=== PATIENT | male | born 1960 | race Caucasian/White ===

== ENCOUNTER 2016-07-04 12:54 | Observation (INO) | payer SELFPAY ==
[2016-07-04] MEDS: NITROGLYCERIN 0.4 MG SL TAB (BOTTLE OF 3) SL ONE ×2 (13:00→13:05)
[2016-07-04] MEDS ORDERED: NITROGLYCERIN 0.4 MG SL TAB (BOTTLE OF 3) SL ONE ×2 (13:01→14:41)
[2016-07-04] MEDS ORDERED: Sodium Chloride 0.9% 1,000 ML PRIMARY IV ONE (13:05)
[2016-07-04] MEDS ORDERED: ONDANSETRON 4 MG/2 ML VIAL IVP ONE (13:05)
[2016-07-04] MEDS ORDERED: MORPHINE SULFATE 4 MG/1 ML IVP ONE (13:05)
[2016-07-04] MEDS ORDERED: ACETAMINOPHEN 500 MG TABLET PO ONE (13:12)
--- NOTE | 2016-07-04 13:12 | PDOC ---
Chest Pain HPI - General Chief Complaint: Chest Pain Stated Complaint: CHEST PAIN, LEFT ARM PAIN Date Seen by Provider: 07/04/16 Time Seen by Provider: 13:07 Source: Patient Exam Limitations: POSITIVE: No limitations Treatment Prior to Arrival: REPORTS: Aspirin Nurse's Notes Reviewed & Considered: Yes EMS Report Reviewed & Considered: Verbal - History of Present Illness Initial Comments: This pleasant 55-year-old male comes in today via ambulance for chest pain. 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 He had associated nausea , sweating, and radiation to his back. He states when he got up this morning he didn't feel quite right but is unable to quantify exactly what was wrong. He states he was in his normal health last night when he went to bed. By the time the slip cover estimator's deputy had managed to get this patient from the drill site out to the ambulance his chest pain had significantly improved. He will the emergency department his pain rapidly abated with 2 sublingual nitroglycerin. The first dropped his pain from a 5/10 to a 1/10. The second nitroglycerin dropped his pain to 0. Patient denies any past history of cardiac issues. He denies any family history of heart attacks in his mother, father, brother, or sister. He does smoke a pack of cigarettes a day. Body Location Affected: REPORTS: Chest Timing: REPORTS: Abrupt Duration: 1-3 hours Severity: Severe Context: REPORTS: Activity Quality: REPORTS: Pressure Radiation: REPORTS: Back Associated Symptoms: REPORTS: Nausea, Shortness of Breath Modifying Factors: improves with: None Reported Similar Symptoms Previously: No Recently seen/treated/hospitalized: No Any Prior Injuries Related to Current Complaint?: No - Patient Home Medications Home Medications: Home Medications Naproxen Sodium [Aleve] 2 tab PO DAILY PRN 07/04/16 - Patient Allergies Allergies/Adverse Reactions: Allergies Allergy/AdvReac Type Severity Reaction Status Date / Time No Known Allergies Allergy Verified 07/04/16 13:17 Past Medical History - heen HEENT History: Denies History Cardiovascular History: Hypertension Respiratory History: Asthma, Other (please comment) Additional Respiratory History: smoker Gastrointestinal History: Denies History Genitourinary History: Denies History Endocrine History: Denies History Musculoskeletal History: Other (please comment) Additional Musculoskeletal History: Lt total knee. Rt shoulder pinning. Rt hand x 3 Neurological History: Denies History Blood Disorders: Denies History Psychiatric History: Denies History Cancer History: Denies History History of MDRO: Unknown Alcohol Use: None Substance Use Type: Marijuana Previous Surgical History: Yes Type / Date of Surgery: Lt knee replacement. Rt shoulder pinning. Rt hand x 3. Testicle removed Significant Family History: No pertinent family hx ROS - Limitations ROS Limitations: No Limitations Constitution: REPORTS: Diaphoresis Cardiovascular: REPORTS: Chest Pain Respiratory: REPORTS: Shortness Of Breath Neurological: REPORTS: Denies Neuro Symptoms Gastrointestinal: REPORTS: Nausea Endocrine: REPORTS: Denies Symptoms Musculoskeletal: REPORTS: Back Pain Genitourinary: REPORTS: Denies Symptoms Eyes: REPORTS: Denies Symptoms ENT: REPORTS: Denies Symptoms Skin: REPORTS: Denies Skin Symptoms Lympathic: REPORTS: Denies Lympathic Symptoms Immunologic: POSITIVE: Denies Symptoms Psychiatric: POSITIVE: Denies Psych Symptoms Chest Pain PE - General Appearance General Appearance: REPORTS: Alert, Cooperative, No Evidence of Trauma, Mild Distress - HEENT HEENT: POSITIVE: Head Inspection Nml, Eyes Inspection Nml, Ears Inspection Nml, Nose Inspection Nml, Oral/Dental Inspect. Nml, Pharynx Inspect. Nml, PERRL, EOMI - Neck Neck: REPORTS: Normal Inspection - Respiratory Respiratory: REPORTS: No Respiratory Distress, Breath Sounds Normal, Chest Non- Tender - Cardiovascular Cardiovascular: REPORTS: Regular Rate and Rhythm, Heart Sounds Normal - Abdomen Abdomen: Soft: (All Quadrants), Normal Bowel Sounds: (All Quadrants), Denies Tenderness: (All Quadrants) - Skin Skin: REPORTS: Intact, Normal For Race, Warm, Dry, No Rash - Extremities Extremity: Non-Tender: (All Extremities), Normal ROM: (All Extremities), Normal Inspection: (All Extremities), Pelvis Stable: (All Extremities) - Neurological / Psychological Neurological: POSITIVE: Affect Apporpriate, Oriented X3, Motor Normal, Sensation Normal Chest Pain Progress - Results Reviewed by me Xrays/CTs/US Reviewed by me: Yes Discussed with Radiologist: Yes Lab Results Reviewed: Yes Lab Results:: Laboratory Results 07/04/16 Range/Units 12:30 WBC 7.89 (4.8-10.8) 10^3/uL RBC 5.49 (4.70-6.10) 10^6/uL Hgb 16.7 (14.0-18.0) g/dL Hct 47.7 (42.0-52.0) % MCV 86.9 (80-90) FL MCH 30.4 (27-31) PG MCHC 35.0 (33-37) g/dL RDW Std Deviation 41.1 (39-50) fL RDW Coeff of Umair 13.0 (11.5-14.5) % Plt Count 265 (140-350) 10*3/uL MPV 11.5 (7.4-12.2) FL Immature Gran % (Auto) 0.1 (0-5) % Neut % (Auto) 52.2 (50-80) % Lymph % (Auto) 34.0 (10-50) % [place] % (Auto) 10.0 (5-15) % Eos % (Auto) 3.2 (0-8) % Baso % (Auto) 0.5 (0-1) % Immature Gran # (Auto) 0.01 10*3/UL Neut # (Auto) 4.12 10*3/UL Lymph # (Auto) 2.68 10*3/uL [place] # (Auto) 0.79 (0.3-0.8) 10*3/UL Eos # (Auto) 0.25 10*3/UL Baso # (Auto) 0.04 10*3/UL WBC Morphology Comment Normal morphology (NORM) Plt Morphology Comment Normal morphology (NORM) RBC Morph Comment Normal morphology (NORM) PT 10.2 (9.7-11.4) secs INR 0.99 (0.00-5.90) N/A D-Dimer 0.19 (0.00-0.59) mg/L Sodium 140 (135-145) meq/L Potassium 3.8 (3.8-5.2) meq/L Chloride 105 (98-112) meq/L Carbon Dioxide 23 (23-33) meq/L Anion Gap 12 (5-20) BUN 16 (7-22) mg/dL Creatinine 0.8 (0.70-1.50) mg/dL Estimated GFR > 60 (>60 ml/min/1.73m(2)) BUN/Creatinine Ratio 20.00 (6-20) Glucose 87 (78-110) mg/dL Calculated Osmolality 289.0 (267-292) mOsm/kg Calcium 9.4 (8.7-10.7) mg/dL Magnesium 1.9 (1.6-2.4) mg/dL Total Bilirubin 0.5 (0.3-1.2) mg/dL AST 35 (21-57) IU/L ALT 71 (21-72) IU/L Alkaline Phosphatase 56 (38-126) IU/L Lactate Dehydrogenase 405 (313-618) IU/L Total Creatine Kinase 129 (55-170) IU/L Troponin I < 0.012 (< 0.040) ng/mL C-Reactive Protein < 0.5 (0.0-0.9) mg/dL NT-Pro-B Natriuret Pep 22.1 (0-125) PG/ML Total Protein 7.6 (6.1-8.0) g/dL Albumin 4.3 (3.5-4.8) g/dL Globulin 3.3 (2.50-4.10) g/dL Albumin/Globulin Ratio 1.30 (1.3-2.0) mg/g TSH 1.51 (0.2700-4.2000) uIU/mL EKG Interpretation:: POSITIVE: Normal Sinus Rhythm, Normal Rate, Normal QRS, Normal ST/T - Patient's Progress Pain Medication Addressed: POSITIVE: Yes Re-Examine Time: 14:50 Status: POSITIVE: Improved MDM / ED Course: Patient was evaluated, an IV started, blood drawn and sent to the lab for studies, EKG and chest x-rays were obtained. Prior to arrival patient received 4 baby aspirin. Emergency department patient received a liter of normal saline, sublingual nitroglycerin, Zofran, and morphine. The first sublingual nitroglycerin resulted in improvement of his chest pain, the second sublingual nitroglycerin resulted in resolution of his chest pain. Approximately an hour and half later patient's chest pain began to return and a third sublingual nitroglycerin were provided. Next Findings: CBC is within normal limits, comprehensive metabolic panel is within normal limits, d-dimer is normal, troponin is normal, PT and INR normal, EKG is interpreted by me shows a normal sinus rhythm with rate of 76 beats a minute, chest x-ray shows no acute cardiopulmonary decompensation. Assessment: Chest pain with normal EKG and troponin. His chest pain was relieved with sublingual nitroglycerin. Plan: Admission for rule out myocardial infarction with serial enzymes. Quality Measure Initiative: CP/AMI: POSITIVE: EKG, ASA Quality Measure Initiative: CAP: POSITIVE: CXR or CT - Consult Consult (If Yes, Name of Consulting MD & Time Called): Yes (Dr. Juarez [id number]) Consulting MD will see pt:: POSITIVE: [facility] Admit Counseled: POSITIVE: Patient, Family, RE: Lab Results, RE: Radiology Results, RE : DX Patient Care Time - Estimated PCT Patient Care Time (In Minutes): 45 Vital Signs - Recent Vital Signs Vital Signs: Vital Signs (Last 8 hours) Temp Pulse Pulse Resp BP Pulse Ox 07/04/16 13:14 82 18 149/88 93 07/04/16 13:12 97.8 F 07/04/16 13:04 75 07/04/16 12:54 97.8 F 83 17 156/101 92 - VS Reviewed Vital Signs Reviewed: Yes Discharge Clinical Impression: Chest pain Discharge Disposition: Admit to Inpatient Condition: Fair Patient Instructions Given at Discharge: Chest Pain (ED) Date Decision to Admit to Inpatient: 07/04/16 Time Decision to Admit to Inpatient: 14:51
[2016-07-04] MEDS ORDERED: ACETAMINOPHEN 325 MG TABLET PO ONE (13:15)
[2016-07-04 13:21] LABS: BASOPHILS # (AUTO) 0.04 10*3/UL; BASOPHILS % (AUTO) 0.5 % (0-1); EOSINOPHILS # (AUTO) 0.25 10*3/UL; EOSINOPHILS % (AUTO) 3.2 % (0-8); HEMATOCRIT 47.7 % (42.0-52.0); HEMOGLOBIN 16.7 g/dL (14.0-18.0); LYMPHOCYTES # (AUTO) 2.68 10*3/uL; MEAN CORPUSCULAR HEMOGLOBIN 30.4 PG (27-31); MEAN CORPUSCULAR VOLUME 86.9 FL (80-90); MEAN PLATELET VOLUME 11.5 FL (7.4-12.2); MONOCYTES # (AUTO) 0.79 10*3/UL (0.3-0.8); NEUTROPHILS # (AUTO) 4.12 10*3/UL; NEUTROPHILS % (AUTO) 52.2 % (50-80); RED BLOOD COUNT 5.49 10^6/uL (4.70-6.10)
[2016-07-04 13:28] LABS: BLOOD UREA NITROGEN 16 mg/dL (7-22); CALCIUM 9.4 mg/dL (8.7-10.7); EST GLOMERULAR FILTRATION > 60 (>60 ml/min/1.73m(2)); MAGNESIUM 1.9 mg/dL (1.6-2.4); SERUM ALBUMIN 4.3 g/dL (3.5-4.8)
[2016-07-04 13:36] LABS: C-REACTIVE PROTEIN < 0.5 mg/dL (0.0-0.9)
[2016-07-04 13:43] LABS: PLATELET MORPHOLOGY COMMENT NORMAL MORPHOLOGY (NORM); RBC MORPHOLOGY COMMENT NORMAL MORPHOLOGY (NORM); WBC MORPHOLOGY COMMENT NORMAL MORPHOLOGY (NORM)
--- NOTE | 2016-07-04 14:18 | DI ---
AP CHEST X-RAY, 07/04/2016 1:05 PM : Clinical History: Chest pain Previous Exam: None at this facility. There is no acute soft tissue or bony abnormality. Heart size is normal. Lungs are clear. Mediastinal structures are normal. There are no pulmonary nodules. Overlying EKG leads are seen. Reading: Normal chest x-ray.
--- NOTE | 2016-07-04 14:34 | EKG ---
[address] [address] Measurements Intervals [place] Rate: 75 P: 53 AK: 173 QRS: 66 QRSD: 92 T: 36 QT: 379 QTc: 408 Interpretive Statements SINUS RHYTHM No previous ECG available for comparison Electronically Signed On 07-05-16 10:27:38 MDT by Gideon Jose [id number]
[2016-07-04] MEDS ORDERED: LIDOCAINE W/ SODIUM BICARB 0.5 ML SYR SUBD PRN (15:29)
[2016-07-04] MEDS ORDERED: NORMAL SALINE 10 ML SYRINGE FLUSH IVP PRN (15:29)
[2016-07-04] MEDS ORDERED: NITROGLYCERIN 0.4 MG SL TAB (BOTTLE OF 3) SL PRN (15:32)
[2016-07-04] MEDS ORDERED: ONDANSETRON 4 MG/2 ML VIAL IVP PRN (15:32)
--- NOTE | 2016-07-04 15:48 | PDOC ---
History and Physical - History of Present Illness Date and Time of Service: 07/05/2016 3:40 PM Chief Complaint: Chest pain that started today History of Present Illness: This is a 55 years old male with no significant past medical history except he was told in the past that he has borderline hypertension he is on no medication though, who was brought to the hospital because of pain in the chest. 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 in the ER his pain started to come back so they gave him nitroglycerin and that helped to relieve his pain. Currently he is denying pain. Never had this pain before. He did say that he didn't feel right this morning. Past Medical History Medical History: Borderline hypertension on no medications Surgical History: 1. History of previous left knee replacement and right hand surgery and right shoulder pinning. 2. Testicular removal for benign tumor Pertinent Family History: Grandparent had heart disease Past Social History: He is a smoker, denied drugs, no alcohol. Lives in [place]. Tobacco Use: Current Every Day Smoker Substance Use Type: Marijuana Alcohol Use: None Medication / Allergies Home Medications: Home Medications Medication Instructions Recorded Confirmed Type Naproxen Sodium [Aleve] 2 tab PO DAILY PRN 07/04/16 07/04/16 History Allergies/Adverse Reactions: Allergies Allergy/AdvReac Type Severity Reaction Status Date / Time No Known Allergies Allergy Verified 07/04/16 13:17 Review of Systems - Review of Systems All Systems: Reviewed & No Additional Complaints Except as Stated Exam - Vitals Vital Signs: Vital Signs Temperature 98.1 F Temperature Source Oral Pulse Rate [Telemetry] 71 Pulse Rate 70 Respiratory Rate 16 Blood Pressure [Right Arm] 187/91 Blood Pressure 128/85 Pulse Ox 90 Oxygen Delivery Method Room Air Weight 252 lb 3.2 oz - General General Appearance: POSITIVE: No Acute Distress, Cooperative, Obese - Head Head Exam: POSITIVE: Normal Inspection, Atraumatic - Eye Eye Exam: POSITIVE: Normal Appearance - ENT ENT Exam: POSITIVE: Normal Exam - Neck Neck Exam: POSITIVE: Normal Inspection - Respiratory Respiratory Exam: POSITIVE: Clear to Auscultation - Bilaterally - Cardiovascular Cardiovascular Exam: POSITIVE: RRR - GI/Abdominal GI/Abdominal Exam: POSITIVE: Normal Bowel Sounds, Non Tender, Non Distended, Soft - Rectal Rectal Exam: POSITIVE: Deferred - External Exam: POSITIVE: Deferred - Extremities Extremities Exam: POSITIVE: Normal Inspection - Back Back Exam: POSITIVE: Normal Inspection - Neurological Neurological Exam: POSITIVE: Alert, Oriented x 3, CN II-XII Intact, Moves All Extremities Equally - Psychiatric Psychiatric Exam: POSITIVE: Normal Affect - Integumentary Integumentary Exam: POSITIVE: Normal Color Results - Labs CBC and BMP: 07/04/16 12:30 07/04/16 12:30 - EKG Data Rate: Normal EKG Shows Normal: Sinus Rhythm - EKG Data Additional EKG Details: No significant EKG changes noted - Imaging Status: Report Reviewed by Me (Chest x-ray is normal) Assessment and Plan - Patient Problems (1) Chest pain Current Visit: Yes Status: Acute Comment: We'll rule him out, will repeat his cardiac enzymes, will do a stress test in the morning. Will order Lexiscan stress as he is not sure he is be able to walk on treadmill. Will check his lipids. Will put him on aspirin. Will put him also on Protonix. Photo / Body Diagrams - Uploaded Photos Uploaded Photos:
[2016-07-04] MEDS: NICOTINE 21 MG /DAY PATCH TRANSDERM SCH (16:36)
[2016-07-04] MEDS: oxyCODONE-ACETAMINOPHEN 5-325 TAB PO PRN (20:24)
[2016-07-04] MEDS: PANTOPRAZOLE 40 MG TABLET PO SCH (20:24)
[2016-07-05 06:14] LABS: CHOL/HDL RATIO 7.14 RATIO (0-4.0)
--- NOTE | 2016-07-05 08:23 | STRESSTEST ---
[facility] Interpretive Statements Patient had Lexiscan stress test per protocol, Baseline BP was 116/70, heart rate 69, baseline EKG showed minimal ST deperssion in lead III, post infusion patient did have some shortness of breath and dizziness that resolved in the recovery phase, Maximum BP was 122/76, maximum heart rate was 98, No significant EKG changes noted from baseline., Conclusion: The EKG part of lexiscan stress test did not show signficant changes. await nuclear scan results. [email or web address]
--- NOTE | 2016-07-05 08:51 | PDOC(PROG) ---
Date and Time of Service: 07/05/2016 8:15 AM Interval History: Subjective Patient feels better, He is denying chest pain. No shortness of breath and no nausea. Objective : Data - Labs CBC and BMP: 07/04/16 12:30 07/04/16 12:30 Labs - Last 24 Hours: Laboratory Results 07/04/16 07/05/16 07/05/16 Range/Units 19:00 00:53 05:40 Total Creatine Kinase 99 99 (55-170) IU/L Troponin I < 0.012 < 0.012 (< 0.040) ng/mL Triglycerides 245 H (44-200) mg/dL Cholesterol 150 (120-200) mg/dL LDL Cholesterol, Calc 80.000 mg/dL VLDL Cholesterol 49 H (0-40) mg/dL HDL Cholesterol 21 L (40-150) mg/dL Cholesterol/HDL Ratio 7.14 H (0-4.0) RATIO Objective : Exam - General General Appearance: No Acute Distress, Cooperative, Obese - Head Head Exam: Normal Inspection - Eye Eye Exam: Normal Appearance - ENT ENT Exam: Normal Exam - Neck Neck Exam: Normal Inspection - Respiratory Respiratory Exam: Clear to Auscultation - Bilaterally - Cardiovascular Cardiovascular Exam: RRR - GI/Abdominal GI/Abdominal Exam: Normal Bowel Sounds, Non Tender, Non Distended, Soft - Rectal Rectal Exam: Deferred - External Exam: Deferred - Extremities Extremities Exam: Normal Inspection - Back Back Exam: Normal Inspection - Neurological Neurological Exam: Alert, Oriented x 3, CN II-XII Intact, Speech Intact / Clear - Psychiatric Psychiatric Exam: Normal Affect Assessment and Plan - Patient Problems (1) Chest pain Current Visit: Yes Status: Acute Comment: Patient pain resolved, enzymes remained negative. We did the first part of the stress test today did not have signifcant EKG changes, he'll have the resting image tomorrow. Will Keep him overnight until we get the stress test result as he live in [place] Photo / Body Diagrams - Uploaded Photos Uploaded Photos:
[2016-07-05] MEDS: PANTOPRAZOLE 40 MG TABLET PO SCH ×2 (09:11→20:52)
[2016-07-05] MEDS: ASPIRIN 325 MG EC TABLET PO SCH (09:12)
[2016-07-05] MEDS: NICOTINE 21 MG /DAY PATCH TRANSDERM SCH ×2 (14:41→16:55)
[2016-07-05] MEDS ORDERED: Patch Removal PATCH TRANSDERM SCH (16:30)
[2016-07-05] MEDS: oxyCODONE-ACETAMINOPHEN 5-325 TAB PO PRN (19:21)
[2016-07-06] MEDS: PANTOPRAZOLE 40 MG TABLET PO SCH (08:58)
[2016-07-06] MEDS: ASPIRIN 325 MG EC TABLET PO SCH (08:59)
[2016-07-06 09:01] VITALS: RESP 16
[2016-07-06 12:33] VITALS: TEMP 97.8
--- NOTE | 2016-07-06 13:30 | DCSUMMARY ---
Hospitalization Summary Hospital Course: Final Discharge Diagnosis: Current Visit Problems Problem Status Priority Diagnosed Code Chest pain Acute R07.9 Diagnostic Data, Laboratory Data, and Procedures of Signifigance: Laboratory Results 07/04/16 07/04/16 07/05/16 Range/Units 12:30 19:00 00:53 WBC 7.89 (4.8-10.8) 10^3/uL RBC 5.49 (4.70-6.10) 10^6/uL Hgb 16.7 (14.0-18.0) g/dL Hct 47.7 (42.0-52.0) % MCV 86.9 (80-90) FL MCH 30.4 (27-31) PG MCHC 35.0 (33-37) g/dL RDW Std Deviation 41.1 (39-50) fL RDW Coeff of Umair 13.0 (11.5-14.5) % Plt Count 265 (140-350) 10*3/uL MPV 11.5 (7.4-12.2) FL Immature Gran % (Auto) 0.1 (0-5) % Neut % (Auto) 52.2 (50-80) % Lymph % (Auto) 34.0 (10-50) % Winn % (Auto) 10.0 (5-15) % Eos % (Auto) 3.2 (0-8) % Baso % (Auto) 0.5 (0-1) % Immature Gran # (Auto) 0.01 10*3/UL Neut # (Auto) 4.12 10*3/UL Lymph # (Auto) 2.68 10*3/uL Winn # (Auto) 0.79 (0.3-0.8) 10*3/UL Eos # (Auto) 0.25 10*3/UL Baso # (Auto) 0.04 10*3/UL WBC Morphology Comment Normal morphology (NORM) Plt Morphology Comment Normal morphology (NORM) RBC Morph Comment Normal morphology (NORM) PT 10.2 (9.7-11.4) secs INR 0.99 (0.00-5.90) N/A D-Dimer 0.19 (0.00-0.59) mg/L Sodium 140 (135-145) meq/L Potassium 3.8 (3.8-5.2) meq/L Chloride 105 (98-112) meq/L Carbon Dioxide 23 (23-33) meq/L Anion Gap 12 (5-20) BUN 16 (7-22) mg/dL Creatinine 0.8 (0.70-1.50) mg/dL Estimated GFR > 60 (>60 ml/min/1.73m(2)) BUN/Creatinine Ratio 20.00 (6-20) Glucose 87 (78-110) mg/dL Calculated Osmolality 289.0 (267-292) mOsm/kg Calcium 9.4 (8.7-10.7) mg/dL Magnesium 1.9 (1.6-2.4) mg/dL Total Bilirubin 0.5 (0.3-1.2) mg/dL AST 35 (21-57) IU/L ALT 71 (21-72) IU/L Alkaline Phosphatase 56 (38-126) IU/L Lactate Dehydrogenase 405 (313-618) IU/L Total Creatine Kinase 129 99 99 (55-170) IU/L Troponin I < 0.012 < 0.012 < 0.012 (< 0.040) ng/mL C-Reactive Protein < 0.5 (0.0-0.9) mg/dL NT-Pro-B Natriuret Pep 22.1 (0-125) PG/ML Total Protein 7.6 (6.1-8.0) g/dL Albumin 4.3 (3.5-4.8) g/dL Globulin 3.3 (2.50-4.10) g/dL Albumin/Globulin Ratio 1.30 (1.3-2.0) mg/g Triglycerides (44-200) mg/dL Cholesterol (120-200) mg/dL LDL Cholesterol, Calc mg/dL VLDL Cholesterol (0-40) mg/dL HDL Cholesterol (40-150) mg/dL Cholesterol/HDL Ratio (0-4.0) RATIO TSH 1.51 (0.2700-4.2000) uIU/mL 07/05/16 Range/Units 05:40 WBC (4.8-10.8) 10^3/uL RBC (4.70-6.10) 10^6/uL Hgb (14.0-18.0) g/dL Hct (42.0-52.0) % MCV (80-90) FL MCH (27-31) PG MCHC (33-37) g/dL RDW Std Deviation (39-50) fL RDW Coeff of Umair (11.5-14.5) % Plt Count (140-350) 10*3/uL MPV (7.4-12.2) FL Immature Gran % (Auto) (0-5) % Neut % (Auto) (50-80) % Lymph % (Auto) (10-50) % Winn % (Auto) (5-15) % Eos % (Auto) (0-8) % Baso % (Auto) (0-1) % Immature Gran # (Auto) 10*3/UL Neut # (Auto) 10*3/UL Lymph # (Auto) 10*3/uL Winn # (Auto) (0.3-0.8) 10*3/UL Eos # (Auto) 10*3/UL Baso # (Auto) 10*3/UL WBC Morphology Comment (NORM) Plt Morphology Comment (NORM) RBC Morph Comment (NORM) PT (9.7-11.4) secs INR (0.00-5.90) N/A D-Dimer (0.00-0.59) mg/L Sodium (135-145) meq/L Potassium (3.8-5.2) meq/L Chloride (98-112) meq/L Carbon Dioxide (23-33) meq/L Anion Gap (5-20) BUN (7-22) mg/dL Creatinine (0.70-1.50) mg/dL Estimated GFR (>60 ml/min/1.73m(2)) BUN/Creatinine Ratio (6-20) Glucose (78-110) mg/dL Calculated Osmolality (267-292) mOsm/kg Calcium (8.7-10.7) mg/dL Magnesium (1.6-2.4) mg/dL Total Bilirubin (0.3-1.2) mg/dL AST (21-57) IU/L ALT (21-72) IU/L Alkaline Phosphatase (38-126) IU/L Lactate Dehydrogenase (313-618) IU/L Total Creatine Kinase (55-170) IU/L Troponin I (< 0.040) ng/mL C-Reactive Protein (0.0-0.9) mg/dL NT-Pro-B Natriuret Pep (0-125) PG/ML Total Protein (6.1-8.0) g/dL Albumin (3.5-4.8) g/dL Globulin (2.50-4.10) g/dL Albumin/Globulin Ratio (1.3-2.0) mg/g Triglycerides 245 H (44-200) mg/dL Cholesterol 150 (120-200) mg/dL LDL Cholesterol, Calc 80.000 mg/dL VLDL Cholesterol 49 H (0-40) mg/dL HDL Cholesterol 21 L (40-150) mg/dL Cholesterol/HDL Ratio 7.14 H (0-4.0) RATIO TSH (0.2700-4.2000) uIU/mL History and Physical pertinent to Admission: Past Medical History Medical History: Borderline hypertension on no medications Surgical History: 1. History of previous left knee replacement and right hand surgery and right shoulder pinning. 2. Testicular removal for benign tumor Pertinent Family History: Grandparent had heart disease Past Social History: He is a smoker, denied drugs, no alcohol. Lives in [place]. 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 His troponins remain negative he did undergo a Lexiscan stress test. Which is positive fluid medium sized reversible defect in the apex area patient will be transferred to [facility] under the care of Dr. Walker cardiology to [place] also wanted him to have a dose of Lovenox 1 mg/kg On the date of discharge, the patient was examined: Gen.: [No acute distress, alert, nontoxic] Heart: [Regular rate and rhythm, no murmurs, clicks, gallops, or rubs] Lungs: [Clear to auscultation bilaterally, breathing is nonlabored] Abdomen/GI: [Normal tones on auscultation, soft, nontender, nondistended] Musculoskeletal/extremities: [No clubbing, cyanosis, or edema] Vitals reviewed and are listed below Vital Signs (24 hrs) Temp Pulse Pulse Pulse Pulse Resp BP 07/06/16 12:31 97.8 F 76 16 142/86 07/06/16 09:00 98.2 F 83 16 112/60 07/06/16 07:00 57 L 07/06/16 05:15 07/06/16 04:42 98.4 F 69 21 116/73 07/06/16 03:00 69 07/05/16 23:56 98.0 F 67 20 127/72 07/05/16 23:00 87 07/05/16 20:48 98.3 F 83 20 147/82 07/05/16 19:00 76 80 78 20 07/05/16 17:00 98.5 F 78 16 153/82 07/05/16 16:23 72 Pulse Ox 07/06/16 12:31 91 07/06/16 09:00 90 07/06/16 07:00 07/06/16 05:15 93 07/06/16 04:42 93 07/06/16 03:00 07/05/16 23:56 94 07/05/16 23:00 07/05/16 20:48 90 07/05/16 19:00 07/05/16 17:00 92 07/05/16 16:23 Assessment and Plan: 1. As per discharge assessments above 2. Disposition: [facility] 3. Condition on discharge, stable and improved. 4. Diet: regular diet 5. Activities: resume normal activities 6. Follow-Up: 1. [PCP] 2. 7. Medications at the Time of Discharge: 8. Time, care, counseling and coordination of care for this discharge is greater than 30 minutes. Exam - Vitals Vital Signs: Vital Signs Temperature 97.8 F Temperature Source Temporal Artery Scan Pulse Rate [Pulse Oximeter] 76 Pulse Rate [Apical] 80 Pulse Rate [Telemetry] 78 Pulse Rate 57 Respiratory Rate 16 Blood Pressure [Right Arm] 142/86 Blood Pressure 128/85 Pulse Ox 91 Oxygen Flow Rate 2 Oxygen Delivery Method Room Air Height 5 ft 8 in Weight 114.396 kg
--- NOTE | 2016-07-06 14:00 | DI ---
HISTORY: Chest pain. PREVIOUS EXAM: None at this facility. TECHNIQUE: The patient was stressed by Dr. Natalia Simmons. The standard Lexiscan protocol was used. Please see the Doctor's report. At the designated time, 35.6 mCi of 99Tc-sestimibi was injected IV. Stress gated tomograms were acquired within one hour of the i njection. For the resting scans, 35.5 mCi was injected IV and resting gated tomograms were acquired in similar fashion. Stress scans were performed on jul 05 2016; the resting scans were performed on July 06, 2016. FINDINGS: Quantitative and qualitative analyses were performed. Quantitative analysis was performed with the [facility] [id number] protocols. Very low dose limited CT scans of the chest are obtained through the level of the heart for attenuation correction of the gated stress and rest cardiac SPECT data. Non-attenuated and attenuated scans were processed for review, and the atten uated scans were used for final interpretation of this study. Review of the raw data images and automotive quality manager files indicate that these series of examinations ar e of excellent quality. Stress and rest left ventricular chamber sizes are normal. Stress and rest LV EF are 68 % and 67 %, respectively. There is a medium sized, moderate intensity reversible defect involving the anterior apex. There is normal wall motion and normal ejection fractions. Transient ischemic dilatation ratio is 1.25, with a normal range up to 1.22 for patients stressed wit h the Jose protocol and up to 1.33 for patients stressed with the Lexiscan protocol. The very low dose CT scans through the level of the heart show no coronary artery calcifications. The re is no adenopathy or evidence of lung nodules. IMPRESSION: 1. A medium sized moderate intensity reversible defect involving the left anterior apex most consist ent with some ischemia of the left anterior descending artery territory.
[2016-07-06] MEDS ORDERED: ENOXAPARIN SODIUM 100 MG/1 ML SYRINGE SUBCUT SCH (14:30)
== END 2016-07-06 14:59 | disposition short-term general hospital (02) ==
LOC: ER 12:54 → MED/SURG 14:49
PROVIDERS: ADMIT Internal Medicine; ATTEND Internal Medicine
DX: R07.9 Chest pain, unspecified (principal); Z72.0 Tobacco use; I10 Essential (primary) hypertension
CPT/HCPCS: 36415 ×2; 71010; 78452; 80053; 80061; 82550 ×2; 83615; 83735; 83880; 84443; 84484 ×2; 85025; 85379; 85610; 86140; 93005; 93010; 93016; 93017; 93018; 94761 ×3; 96374; 96375; 99284 ×2; A9500; J2785; J1650; J2270; J2405